=== PATIENT | female | born 2000 | race Caucasian/White ===

== ENCOUNTER 2021-11-19 18:45 | Emergency (ER) | payer MEDICAID, SELFPAY ==
[~2021-11-19] VITALS: Ht 154.9 cm; Wt 91.6 kg
[2021-11-19 19:15] VITALS: BP_SYST 147
--- NOTE | 2021-11-19 19:15 | NUR ---
Patient triaged and placed in waiting room. VSS and patient appears in no acute distress at this time. Accompanied by FAM MEMBER, awaiting available bed, and MD notified of need for MSE.
--- NOTE | 2021-11-19 21:50 | NUR ---
Call pt name in the waiting room.No answer
--- NOTE | 2021-11-19 21:55 | NUR ---
Call pt name in the waiting room.No answer
--- NOTE | 2021-11-19 22:00 | NUR ---
Call pt name in the waiting room.No answer
== END 2021-11-19 22:00 | disposition left against medical advice (07) ==
LOC: SED 18:45
DX: R22.0 Localized swelling, mass and lump, head (principal); Z53.21 Procedure and treatment not carried out due to patient leaving prior to being seen by health care provider